=== PATIENT | female | born 1960 | race Hispanic/Latino ===

== ENCOUNTER 2018-12-01 14:08 | Outpatient (CLI) | payer OTHER ==
--- NOTE | 2018-12-01 15:45 | RAD ---
CHEST TWO VIEWS: HISTORY: Dyspnea. COMPARISON: None. FINDINGS: Heart size is upper normal. No evidence of focal infiltrate. Vascular and interstitial markings are u pper normal. No effusion. Osseous structures are unremarkable. IMPRESSION: No acute process. POS: [facility]
== END 2018-12-01 14:09 | disposition home or self-care (01) ==
LOC: RAD 14:08
PROVIDERS: ATTEND Internal Medicine Critical Care Medicine
DX: R06.00 Dyspnea, unspecified (principal)
CPT/HCPCS: 71046